=== PATIENT | female | born 1970 | race Caucasian/White ===

== ENCOUNTER → 2020-11-10 18:03 | Outpatient (BNVA) | payer MEDICAID, SELFPAY | PROVIDERS: Visit Provider Neurological Surgery | DX: Z20.828 Contact with and (suspected) exposure to other viral communicable diseases (principal) | CPT/HCPCS: 87635 ==

== ENCOUNTER 2024-11-28 11:01 | Emergency (ER) | payer MEDICAID, SELFPAY ==
--- NOTE | 2024-11-28 11:03 | XR_ITS ---
WS: [id number] Portable AP upright chest, 11/28/2024 Clinical Data: sob Comparison: Portable chest, 08/17/2016. Findings: No nodules, masses or effusions are seen. The heart is normal. The pulmonary vascularity is not increased. No pneumonia or pneumothorax is seen. There is a slight dextroscoliosis of the midtho racic spine. XR/XR chest 1V portable [id number] Impression: Negative chest.
[2024-11-28 11:07] VITALS: BP 118/59; PULSE 96; RESP 20; TEMP 37; O2SAT 95; BMI 20.8
[2024-11-28 11:13] VITALS: PULSE 88; RESP 20; O2SAT 96
--- NOTE | 2024-11-28 11:27 | ED_ITS ---
HPI - URI/Sore Throat General: Chief Complaint: Upper Respiratory Infection Stated Complaint: Flu symptoms Time Seen by Provider: 11/28/24 11:02 Source: patient Mode of arrival: ambulatory Limitations: no limitations History of Present Illness: 54-year-old female who states that she h as had cough congestion along with wheezing chills body aches going on for 2 days states she feels like she has the flu's had no known sick contacts she denies any vomiting she does not require any oxygen here. Denies any chest pain Associated symptoms: Deny abdominal pain, chills, chest pain, diarrhea, fever(s), headache(s), nausea or vomiting Related Data Home Medications Medication Instructions Recorded Confirmed acetaminophen 325 mg tablet 650 mg PO QID PRN Fever Or Pain 11/28/24 11/28/24 (Tylenol) cyclobenzaprine 10 mg tablet 10 mg PO Q8H PRN Pain 11/28/24 11/28/24 gabapentin 300 mg capsule 300 mg PO BID PRN Muscle Spasm 11/28/24 11/28/24 ibuprofen 200 mg tablet (Advil) 600 mg PO Q6H PRN Pain 11/28/24 11/28/24 oxycodone-acetaminophen 10 mg-325 See Rx Instructions .Route .COMPLEX 11/28/24 11/28/24 mg tablet vitamin C 45 mg-zinc citrate 3.75 2 tab PO DAILY 11/28/24 11/28/24 mg-elderberry 25 mg chewable tablet (Sambucus Elderberry) Previous Rx's Medication Instructions Recorded nirmatrelvir 300 mg (150 mg See Rx Instructions PO .COMPLEX 11/28/24 x2)-ritonavir 100 mg tablet,dose #30 ea pack (Paxlovid) Allergies Allergy/AdvReac Type Severity Reaction Status Date / Time No Known Allergies Allergy Verified 11/28/24 11:10 Review of Systems Const: Denies: fever(s), chills, body aches or change in appetite ENMT: Denies: throat pain or dental pain Card: Denies: chest pain Resp: Reports: dyspnea, non-productive cough and wheezing GI: Denies: abdominal pain, nausea, vomiting or diarrhea : Denies: dysuria Musc: Denies: neck pain or back pain Skin/Breast: Denies: rash Neuro: Denies: headache(s) Physical Exam Const: COMMON NORMALS: no acute distress, patient oriented x3 and healthy appearing HENMT: COMMON NORMALS: normocephalic and atraumatic HEAD & SCALP: normocephalic and atraumatic Eye: COMMON NORMALS: conjunctivae normal CONJUNCTIVA: Yes conjunctivae normal Neck/C-Spine: COMMON NORMALS: full ROM and supple Chest: COMMONS NORMALS: normal inspection of the chest and normal palpation of entire chest wall Resp: COMMON NORMALS: normal respiratory effort, No retractions and No use of accessory muscles AUSCULTATION: wheezes Cardio: COMMON NORMALS: regular rate, regular rhythm and No murmurs present (Cardio) RATE: regular rate RHYTHM: regular rhythm Extremity: COMMON NORMALS: normal to inspection and full ROM Neuro: COMMON NORMALS: patient oriented x3, moves all extremities and no focal motor deficits Psych: COMMON NORMALS: mental status grossly normal, Normal thought process present and cooperative THOUGHT PROCESS: Normal thought process present Skin: COMMON NORMALS: no rashes or lesions noted and no wounds GENERAL SKIN EXAM: no rashes or lesions noted Course Vital Signs: Vital signs: Vital Signs Temperature 98.6 F 11/28/24 11:07 Pulse Rate 88 11/28/24 11:13 Respiratory Rate 20 H 11/28/24 11:13 Blood Pressure 118/59 11/28/24 11:07 Pulse Oximetry 96 11/28/24 11:13 Oxygen Delivery Me thod Room Air 11/28/24 11:13 MDM - URI/Sore Throat Medical Decision Making Patient presents here with cough congestion did test positive for COVID x-ray shows no pneumonia did give her Decadron breathing treatment here we will prescribe her Paxlovid for home she is follow-up with PCP return if worsening. Medical Records I reviewed the patient's medical records. Lab Data I reviewed the patient's lab results. Radiology Impressions Chest X-Ray 11/28/24 11:03 Impression: Negative chest. Laboratory Results Coronavirus (PCR) Positive (Negative) A 11/28/24 11:05 Influenza A (PCR) Negative (Negative) 11/28/24 11:05 Influenza Type B (PCR) Negative (Negative) 11/28/24 11:05 RSV (PCR) Negative (Negative) 11/28/24 11:05 All radiology interpretation(s) finalized by discharge Discharge Plan Discharge Patient Disposition: Home Clinical Impression: COVID-19 Condition: Stable Prescriptions: New Paxlovid 300 mg (150 mg x 2)-100 mg tablets,dose pack See Rx Instructions .ROUTE .COMPLEX Qty: 30 0RF Rx Instructions: take TWO 150 mg tablets of nirmatrelvir with ONE 100 mg tablet of ritonavir twice daily for 5 days No Action cyclobenzaprine 10 mg tablet 10 mg PO Q8H PRN (Reason: Pain) oxycodone-acetaminophen 10-325 mg tablet See Rx Instructions .ROUTE .COMPLEX Rx Instructions: TAKE ONE-HALF TO ONE TABLET BY MOUTH EVERY 8 HOURS NEEDED FOR PAIN gabapentin 300 mg capsule 300 mg PO BID PRN (Reason: Muscle Spasm) Sambucus Elderberry 45-3.75-25 mg Tablet,Chewable 2 tab PO DAILY acetaminophen [Tylenol] 325 mg Tablet 650 mg PO QID PRN (Reason: Fever Or Pain) ibuprofen [Advil] 200 mg Tablet 600 mg PO Q6H PRN (Reason: Pain) Discharge Orders: Discharge ED (Routine); Ordered 11/28/24 Ordered By: Rob Harry Discharge Diet: Advance as tolerated Discharge Activity: Resume usual activity Patient Instructions: COVID-19 (Coronavirus Disease 2019) (ED) Coding Level of Care Code ED [employer] for August Mccormack
--- NOTE | 2024-11-28 11:37 | PC.PHAR ---
Patient states she took 1/2 a oxycodone acetaminophen earlier today before comeing in to ER.
[2024-11-28] MEDS: dexamethasone 10 mg/mL INJ IM (11:38)
[2024-11-28 11:54] LABS: Influenza A NEGATIVE (Negative); Influenza B NEGATIVE (Negative); Respiratory Syncytial Virus Ce NEGATIVE (Negative)
[2024-11-28 12:03] LABS: Covid PCR Positive (Negative)
[2024-11-28 12:34] VITALS: PULSE 82; RESP 18; O2SAT 95
[2024-11-28] MEDS: ipratropium-albuterol 3 mL Neb INHALATION (12:34)
[2024-11-28 12:59] VITALS: BP 118/59; PULSE 90; O2SAT 96
== END 2024-11-28 13:01 | disposition home or self-care (01) ==
PROVIDERS: Emergency Provider Emergency Medicine
DX: U07.1 COVID-19 (principal); Z11.52 Encounter for screening for COVID-19
CPT/HCPCS: 71045; 87637; 94640; 99284; J1100